=== PATIENT | female | born 1950 | race Caucasian/White ===

== ENCOUNTER → 2017-03-05 | Outpatient (CLI) | payer MEDICARE, BC | END | disposition home or self-care (01) | LOC: RAD.S 03-04 14:45 | DX: M54.6 Pain in thoracic spine (principal); M47.894 Other spondylosis, thoracic region ==

== ENCOUNTER → 2017-03-08 | Outpatient (CLI) | payer MEDICARE, BC | END | disposition home or self-care (01) | LOC: RAD.S 12:44 | DX: M54.9 Dorsalgia, unspecified (principal); M85.88 Other specified disorders of bone density and structure, other site; Z78.0 Asymptomatic menopausal state ==